=== PATIENT | male | born 1995 | race Caucasian/White ===

== ENCOUNTER 2024-11-27 03:03 | Emergency (ER) | payer BC, OTHER, SELFPAY ==
[2024-11-27] MEDS ORDERED: HYDROCODONE/CHLORPHEN 5 ML/OSYR ONE (03:56)
[2024-11-27] MEDS ORDERED: IBUPROFEN 400 MG TAB ONE (03:57)
[2024-11-27] MEDS ORDERED: ONDANSETRON 4 MG (ODT) TAB ONE (03:57)
[2024-11-27 04:40] LABS: SARS-CoV-2 Antigen CONTROL BLUE LINE VIS/BG OK; SARS-CoV-2 Antigen Rapid Res Negative (Negative)
[2024-11-27] MEDS ORDERED: OSELTAMIVIR 75 MG CAP PO ONE (05:05)
--- NOTE | 2024-11-27 05:10 | EDPHYS ---
Physician Documentation [facility] Name: Red Richardson Age: 29 yrs Sex: Male : 1995 Arrival Date: 11/27/2024 Time: 03:03 Bed 6 Private MD: ED Physician Jono Cevallos HPI: 11/27 03:33 This 29 yrs old Male presents to ER via Ambulatory with complaints of Flu Symptoms. cp 03:33 The patient or guardian reports cough, that is constant, flu symptoms, body aches, sore cp throat, nausea, fever. 03:33 Onset: The symptoms/episode began/occurred night before last night. Associated signs cp and symptoms: Pertinent negatives: diarrhea, vomiting. Severity of symptoms: in the emergency department the symptoms are unchanged despite home interventions. Historical: - Allergies: 03:08 No Known Allergies; ha1 - PMHx: 03:08 None; ha1 - Immunization history:: Adult Immunizations up to date. - Infectious Disease History:: Denies. - Social history:: Smoking status: Reported history of juuling and/or vaping. ROS: 03:35 Constitutional: Positive for body aches, chills, fever, cp 03:35 Cardiovascular: Positive for chest pain, with cough, 03:35 Respiratory: Positive for cough, "sounds productive", 03:35 Abdomen/GI: Positive for nausea, Negative for vomiting, diarrhea, 03:35 Neuro: Positive for headache, Exam: 03:40 Constitutional: The patient appears in no acute distress, alert, awake, non-toxic, well cp developed, well nourished, uncomfortable, 03:40 Head/Face: Normocephalic, atraumatic. cp 03:40 Eyes: Periorbital structures: appear normal, Conjunctiva: normal, no exudate, no injection, Sclera: no appreciated abnormality, Lids and lashes: appear normal, bilaterally, 03:40 ENT: External ear(s): are unremarkable, Ear canal(s): are normal, clear, TM's: dullness, bilaterally, Nose: is normal, Mouth: Lips: moist, Oral mucosa: moist, Posterior pharynx: Airway: no evidence of obstruction, patent, erythema, that is moderate, exudate, is not appreciated, 03:40 Neck: ROM/movement: Meningeal signs: are not present, nuchal rigidity, is not appreciated, 03:40 Chest/axilla: Inspection: normal, 03:40 Cardiovascular: Rate: normal, 03:40 Respiratory: the patient does not display signs of respiratory distress, Respirations: normal, no use of accessory muscles, no retractions, labored breathing, is not present, Breath sounds: bronchial sounds, that are mild, are heard diffusely, 03:40 Abdomen/GI: Inspection: abdomen appears normal, Palpation: abdomen is soft and non-tender, in all quadrants, 03:40 Neuro: Orientation: to person, place \\T\\ time. Mentation: is normal, Motor: moves all fours, strength is normal, Sensation: is normal, Vital Signs: 03:08 BP 120 / 72; Pulse 86; Resp 18 S; Temp 102.1(O); Pulse Ox 98% on R/A; Weight 97.52 kg; ha1 03:15 BP 126 / 81; Pulse 87; Resp 18; Pulse Ox 96% on R/A; al5 03:30 BP 134 / 71; Pulse 88; Resp 18; Pulse Ox 94% on R/A; al5 03:45 BP 117 / 61; Pulse 87; Resp 18; Pulse Ox 96% on R/A; al5 05:00 BP 113 / 59; Pulse 88; Resp 18; Temp 100.9; Pulse Ox 95% on R/A; al5 05:25 BP 115 / 67; Pulse 85; Resp 18; Pulse Ox 94% ; br2 MDM: 03:10 Medical Screening Exam initiated cp 04:00 Differential diagnosis: bronchitis, flu, URI, pneumonia. cp 04:56 Data reviewed: vital signs, nurses notes, lab test result(s), radiologic studies, plain cp films. I considered the following discharge prescriptions or medication management in the emergency department Medications were administered in the Emergency Department. See MAR. Independent interpretation of the following test(s) in the Emergency Department X-Ray: My interpretation is images of chest negative for focal pneumonia. 05:10 Counseling: I had a detailed discussion with the patient and/or guardian regarding the cp historical points, exam findings, and any diagnostic results supporting the discharge/admit diagnosis, lab results, radiology results, to return to the emergency department if symptoms worsen or persist or if there are any questions or concerns that arise at home. 05:10 Response to treatment: the patient's symptoms have mildly improved after treatment. cp 11/27 03:29 Order name: SARS RAPID; Complete Time: 04:57 cp 11/27 03:29 Order name: Influenza Screen (a \\T\\ B); Complete Time: 04:57 cp 11/27 04:57 Interpretation: Reviewed. cp 11/27 03:29 Order name: RSV; Complete Time: 04:57 cp 11/27 03:29 Order name: Strep cp 11/27 04:42 Order name: Throat Culture EDMS 11/27 03:29 Order name: XRAY Chest Pa And Lat (2 Views) cp Administered Medications: 04:04 Drug: Ondansetron PO 4 mg PO once Route: PO; br2 04:05 Follow up: Response: No adverse reaction br2 04:04 Drug: Tussionex Pennkinetic ER PO Suspension 5 ml PO once Route: PO; br2 04:35 Follow up: Response: No adverse reaction br2 04:04 Drug: Ibuprofen PO 800 mg PO once Route: PO; br2 04:35 Follow up: Response: No adverse reaction br2 05:07 Drug: Oseltamivir PO 75 mg PO once Route: PO; al5 05:26 Follow up: Response: No adverse reaction br2 Disposition: 23:03 Chart complete. cp Disposition Summary: 11/27/24 05:10 Discharge Ordered Notes: Location: Home cp Problem: new cp Symptoms: have improved cp Condition: Stable cp Diagnosis - Influenza due to identified novel influenza A virus with other respiratory cp manifestations - Nausea cp Followup: cp - With: Private Physician - When: 2 - 3 days - Reason: Worsening of condition Discharge Instructions: - Discharge Summary Sheet cp - Influenza, Adult cp - Influenza Tests cp Forms: - Work release form cp - Medication Reconciliation Form cp - Antibiotic Education cp - Prescription Opioid Use cp - Patient Portal Instructions cp - Leadership Thank You Letter cp Prescriptions: - Bromfed DM 2-30-10 mg/5 mL Oral syrup - administer 10 milliliter ORAL route every 6 hours; 240 milliliter; Refills: 0, cp Product Selection Permitted - Ibuprofen 800 mg Oral Tablet - take 1 tablet ORAL route every 8 hours As needed take with food; 30 tablet; cp Refills: 0, Product Selection Permitted - Tamiflu 75 mg Oral Capsule - take 1 capsule ORAL route every 12 hours for 5 days; 10 capsule; Refills: 0, cp Product Selection Permitted - Zofran 4 mg Oral tablet - take 1 tablet ORAL route every 12 hours As needed; 10 tablet; Refills: 0, cp Product Selection Permitted Addendum: 11/30/2024 14:15 Co-signature as Attending Physician, Jono Cevallos MD I agree with the assessment and c morales plan of care. Signatures: Dispatcher [employer] EDMD Jono Cevallos MD MD cha Page, Corey, PA PA cp Sabina Mcbride RN RN ha1 Amarilis Falk RN RN al5 Wendy Kilpatrick RN RN br2 Corrections: (The following items were deleted from the chart) 11/27 04:59 01:35 Constitutional: Positive for body aches, chills, fever, cp cp 04:59 01:35 Cardiovascular: Positive for chest pain, with cough, cp cp 04:59 01:35 Respiratory: Positive for cough, "sounds productive", cp cp 04:59 01:35 Abdomen/GI: Positive for nausea, Negative for vomiting, diarrhea, cp cp 04:59 01:35 Neuro: Positive for headache, cp cp 23:03 05:00 Counseling: I had a detailed discussion with the patient and/or guardian cp regarding the historical points, exam findings, and any diagnostic results supporting the discharge/admit diagnosis, lab results, radiology results, to return to the emergency department if symptoms worsen or persist or if there are any questions or concerns that arise at home, cp
--- NOTE | 2024-11-27 05:10 | ER ---
Nurse's Notes [facility] Name: Red Richardson Age: 29 yrs Sex: Male : 1995 Arrival Date: 11/27/2024 Time: 03:03 Bed 6 Private MD: Diagnosis: Influenza due to identified novel influenza A virus with other respiratory manifestations;Nausea Presentation: 11/27 03:08 Chief complaint: Patient states: BODY ACHES, FEVER, AND SORE THROAT. ha1 03:08 Coronavirus screen: Client denies travel out of the [place] in the last 14 days. Ebola ha1 Screen: No symptoms or risks identified at this time. Initial Sepsis Screen: Does the patient meet any 2 criteria? No. Patient's initial sepsis screen is negative. Does the patient have a suspected source of infection? No. Patient's initial sepsis screen is negative. Risk Assessment: Do you want to hurt yourself or someone else? Patient reports no desire to harm self or others. Onset of symptoms was November 27, 2024. 03:08 Method Of Arrival: Ambulatory ha1 03:08 Acuity: HARRIET 4 ha1 Triage Assessment: 03:08 General: Appears uncomfortable, Behavior is calm, cooperative. Pain: Complains of pain ha1 in BODY ACHES. Neuro: Level of Consciousness is awake, alert, obeys commands, Oriented to person, place, time, situation. Cardiovascular: Patient's skin is warm and dry. Respiratory: Reports SORE THROAT Airway is patent Respiratory effort is even, unlabored, Respiratory pattern is regular, symmetrical. Historical: - Allergies: 03:08 No Known Allergies; ha1 - PMHx: 03:08 None; ha1 - Immunization history:: Adult Immunizations up to date. - Infectious Disease History:: Denies. - Social history:: Smoking status: Reported history of juuling and/or vaping. Screenin:49 [facility] ED Fall Risk Assessment (Adult) History of falling in the last 3 months, al5 including since admission No falls in past 3 months (0 pts) Confusion or Disorientation No (0 pts) Intoxicated or Sedated No (0 pts) Impaired Gait No (0 pts) Mobility Assist Device Used No (0 pt) Altered Elimination No (0 pt) Score/Fall Risk Level 0 - 2 = Low Risk Oriented to surroundings, Maintained a safe environment, Hourly rounding (assess needs \T\ fall precautionary measures) done. 03:49 Abuse screen: Denies threats or abuse. Denies injuries from another. Nutritional al5 screening: No deficits noted. Tuberculosis screening: No symptoms or risk factors identified. Assessment: 03:49 General: Appears in no apparent distress. uncomfortable, Behavior is calm, cooperative. al5 03:49 Pain: Complains of pain in generalized Quality of pain is described as aching. Neuro: al5 Level of Consciousness is awake, alert, obeys commands, Oriented to person, place, time, situation. Cardiovascular: Capillary refill < 3 seconds Patient's skin is warm and dry. Respiratory: Reports cough that is Airway is patent Respiratory effort is even, unlabored, Respiratory pattern is regular, symmetrical. GI: No signs and/or symptoms were reported involving the gastrointestinal system. : No signs and/or symptoms were reported regarding the genitourinary system. EENT: No signs and/or symptoms were reported regarding the EENT system. Derm: Skin is intact, is healthy with good turgor, Skin is pink, warm \T\ dry. normal. Musculoskeletal: Reports pain in generalized. 05:07 Reassessment: Patient appears in no apparent distress at this time. Patient and/or al5 family updated on plan of care and expected duration. Pain level reassessed. Patient is alert, oriented x 3, equal unlabored respirations, skin warm/dry/pink. Patient states feeling better. Vital Signs: 03:08 BP 120 / 72; Pulse 86; Resp 18 S; Temp 102.1(O); Pulse Ox 98% on R/A; Weight 97.52 kg; ha1 03:15 BP 126 / 81; Pulse 87; Resp 18; Pulse Ox 96% on R/A; al5 03:30 BP 134 / 71; Pulse 88; Resp 18; Pulse Ox 94% on R/A; al5 03:45 BP 117 / 61; Pulse 87; Resp 18; Pulse Ox 96% on R/A; al5 05:00 BP 113 / 59; Pulse 88; Resp 18; Temp 100.9; Pulse Ox 95% on R/A; al5 05:25 BP 115 / 67; Pulse 85; Resp 18; Pulse Ox 94% ; br2 ED Course: 03:04 Patient arrived in ED. [email or web address] 03:07 Jono Ruvalcaba PA is PHCP. cp 03:07 Jono Cevallos MD is Attending Physician. cp 03:08 Arm band placed on right wrist. ha1 03:32 Triage completed. ha1 03:49 Patient has correct armband on for positive identification. Bed in low position. Call al5 light in reach. Side rails up X 1. Provided Education on: plan of care. 03:49 No provider procedures requiring assistance completed. al5 03:49 Patient did not have IV access during this emergency room visit. al5 04:04 XRAY Chest Pa And Lat (2 Views) In Process Unspecified. EDMS 04:57 Amarilis Falk, RN is Primary Nurse. al5 Administered Medications: 04:04 Drug: Ondansetron PO 4 mg PO once Route: PO; br2 04:05 Follow up: Response: No adverse reaction br2 04:04 Drug: Tussionex Pennkinetic ER PO Suspension 5 ml PO once Route: PO; br2 04:35 Follow up: Response: No adverse reaction br2 04:04 Drug: Ibuprofen PO 800 mg PO once Route: PO; br2 04:35 Follow up: Response: No adverse reaction br2 05:07 Drug: Oseltamivir PO 75 mg PO once Route: PO; al5 05:26 Follow up: Response: No adverse reaction br2 Medication: 03:49 VIS not applicable for this client. al5 Outcome: 05:10 Discharge ordered by MD. cp 05:24 Discharged to home ambulatory, br2 05:24 Condition: improved 05:24 Discharge instructions given to patient, family, Instructed on discharge instructions, follow up and referral plans. medication usage, Demonstrated understanding of instructions, follow-up care, medications, Prescriptions given X 4, 06:14 Patient left the ED. al5 Signatures: Dispatcher [employer] EDWI Jono Ruvalcaba PA PA cp Jeffries, Jennifer [email or web address] Sabina Mcbride RN RN ha1 Amarilis Falk RN RN al5 Wendy Kilpatrick, RN RN br2 Corrections: (The following items were deleted from the chart) 05:02 03:45 BP 114 / 61; Pulse 87bpm; Resp 18bpm; Pulse Ox 96% RA; al5 al5 05:03 05:02 Temp 100.9F; al5 al5
--- NOTE | 2024-11-27 06:46 | RAD REPORT ---
PROCEDURE: R CHEST 2 VIEWS HISTORY: ough;Fever COMPARISON: None FINDINGS: The heart appears unremarkable. The lungs are clear there is no alveolar consolidation, effusion or p neumothorax. There are no acute bony or soft tissue abnormalities. IMPRESSION: No acute cardiopulmonary process. Electronically signed by: Pedro Watson MD 11/27/2024 06:43 AM [facility] Due to temporary technical issues with the PACS/[employer] reporting system, reports are being carlos d by the in-house radiologist without review as a courtesy to ensure prompt reporting the interpreting radiologist is fully responsible for the content of the report. Transcribed Date/Time: 11/27/2024 6:46 AM
[2024-11-27 09:04] VITALS: TEMP 100.9
[2024-11-27 09:05] VITALS: BP 115/67; O2SAT 94
== END 2024-11-27 06:14 | disposition home or self-care (01) ==
LOC: ER 03:03
DX: J10.1 Influenza due to other identified influenza virus with other respiratory manifestations (principal); Z11.52 Encounter for screening for COVID-19
CPT/HCPCS: 36415; 71046; 87070; 87081; 87804; 87807; 87811; 99283; Q0162